=== PATIENT | male | born 1950 | race Caucasian/White ===

== ENCOUNTER → 2017-06-23 | Outpatient (CLI) | payer OTHER ==
--- NOTE | ~2017-06-23 | 2DMMODE ---
[facility] [address] [place] [address] 2 D/M-MODE ECHOCARDIOGRAM Name: BARTOLO YANG [facility]: [id number] Admission: 06/23/17 Attend Phys: Axel Noonan Discharge: Date of : 48 Date of Service: 06/23/17 1521 Report #: [id number] THIS REPORT FOR: //name// APPROVED REPORT Study performed: 06/23/2017 12:07:17 EXAM: Comprehensive 2D, Doppler, and color-flow Echocardiogram Patient Location: Out-Patient Room #: Echo lab 2 Status: routine BSA: 2.45 HR: 73 bpm BP: 128/82 mmHg Other Information Study Quality: Adequate Indications Abnormal ECG 2D Dimensions RVDd: 30.83 mm LVEF(%): 65.43 (>50%) IVSd: 11.21 (7-11mm) LVOT Diam: 23.23 (18-24mm) LVDd: 55.76 mm PWd: 11.11 (7-11mm) Ascending Ao: 35.74 (22-36mm) LVDs: 35.49 (25-40mm) Aortic Root: 35.24 mm IVC: 17.00 mm Conner's LVEF: 65.43 % Volumes Left Atrial Volume (Systole) Single Plane 4CH: 63.07 mL Single Plane 2CH: 53.11 mL LA ESV Index: 26.00 mL/m2 Aortic Valve AoV Peak Cheikh.: 1.40 m/s AO Peak Gr.: 7.82 mmHg LVOT Max P.23 mmHg LVOT Max V: 1.34 m/s ROGELIO Vmax: 4.07 cm2 Mitral Valve E/A Ratio: 1.1 MV Decel. Time: 207.85 ms MV E Max Cheikh.: 0.80 m/s [facility] [employer] [place] [address] 2 D/M-MODE ECHOCARDIOGRAM Name: BARTOLO YANG Room #: [facility] GilbertoAndressa#: [id number] Admission: 06/23/17 Attend Phys: Axel Noonan Discharge: Date of : 48 Date of Service: 06/23/17 1521 Report #: [id number] MV A Cheikh.: 0.74 m/s MV PHT: 60.28 ms IVRT: 96.89 ms Pulmonary Valve PV Peak Cheikh.: 0.96 m/s PV Peak Gr.: 3.69 mmHg Pulmonary Vein P Vein S: 0.65 m/s P Vein A: 0.27 m/s P Vein D: 0.56 m/s P Vein A Dur.: 120.0 msec P Vein S/D Ratio: 1.16 Left Ventricle The left ventricle is normal size. There is normal LV segmental wall motion. There is normal left ventricular wall thickness. The left ventricular systolic function is normal. The left ventricular ejection fraction is within the normal range. LVEF is 60-65%. The left ventricular diastolic function is normal. Right Ventricle The right ventricle is normal size. The right ventricular systolic function is normal. Atria The left atrium size is normal. The right atrium size is normal. Aortic Valve The aortic valve is normal in structure. No aortic regurgitation is present. There is no aortic valvular stenosis. Mitral Valve The mitral valve is normal in structure. There is no mitral valve regurgitation noted. No evidence of mitral valve stenosis. Tricuspid Valve The tricuspid valve is normal in structure. There is no tricuspid valve regurgitation noted. Pulmonic Valve The pulmonary valve is normal in structure. There is no pulmonic valvular regurgitation. Great Vessels The aortic root is normal in size. IVC is normal in size and collapses >50% with inspiration. [facility] [address] [place] [address] 2 D/M-MODE ECHOCARDIOGRAM Name: BARTOLO YANG Room #: REG CL [facility]#: [id number] Admission: 06/23/17 Attend Phys: Axel Noonan Discharge: Date of : 48 Date of Service: 06/23/17 1521 Report #: [id number] Pericardium There is no pericardial effusion. <Conclusion> The left ventricle is normal size. LVEF is 60-65%. The aortic valve is normal in structure. The mitral valve is normal in structure. The tricuspid valve is normal in structure. The pulmonary valve is normal in structure. <ELECTRONICALLY SIGNED> By: Axel Moore MD 06/23/17 1521 1521 1521 Axel Moore MD /INF
== END ==
LOC: CV 11:24
DX: R94.31 Abnormal electrocardiogram [ECG] [EKG] (principal)

== ENCOUNTER → 2017-06-26 | Outpatient (CLI) | payer OTHER | LOC: EDSTATUS 06:27 → NUC 06:27 → EDSTATUS 07:20 → NUC 07:27 | DX: R94.31 Abnormal electrocardiogram [ECG] [EKG] (principal); I10 Essential (primary) hypertension ==